=== PATIENT | female | born 1975 | race Caucasian/White ===

== ENCOUNTER → 2016-06-20 | Outpatient (CLI) | payer OTHER ==
[~2016-06-20] MED LIST: BIOTCAP2 PO; CETI10TA84 PO; CITA20TA9 PO; FLUT27.5 NAE; GLC/500 PO; IBUP600T44 PO; LEVO88TA22 PO; LEVO88TA3 PO; LORA10TA6 PO; OMEP10CA2 PO; OXYC-57 PO; PEDICHW50 PO; PRENTAB26 PO
[2016-06-20 12:39] LABS: ALT/SGPT 36 U/L (12-78); AST/SGOT 27 U/L (15-37); BLOOD UREA NITROGEN 14 mg/dl (7-18); BUN/CREATININE RATIO 16.9 (10-20); CALCIUM 9.4 mg/dl (8.5-10.1); CARBON DIOXIDE 29 mmol/L (21-32); CHLORIDE 105 mmol/L (98-107); CREATININE 0.84 mg/dl (0.60-1.20); GLUCOSE 99 mg/dl (70-99); POTASSIUM 4.2 mmol/L (3.5-5.1); SODIUM 142 mmol/L (136-145)
[2016-06-20 12:48] LABS: ALB/GLOB RATIO 1.1 (0.9-2); ALKALINE PHOSPHATASE 73 U/L (45-117); CHOLESTEROL 190 mg/dl (0-200); CHOLESTEROL/HDL RATIO 5.3; HDL CHOLESTEROL 36 mg/dl; LDL CHOLESTEROL CALCULATED 101 mg/dl; TRIGLYCERIDES 265 mg/dl (0-150); VERY LOW DENSITY LIPOPROT CALC 53 mg/dl
== END | disposition home or self-care (01) ==
LOC: C.LABBFT 08:55
PROVIDERS: ATTEND Internal Medicine
DX: Z00.00 Encounter for general adult medical examination without abnormal findings (principal); E03.9 Hypothyroidism, unspecified; E78.1 Pure hyperglyceridemia; R73.01 Impaired fasting glucose

== ENCOUNTER → 2016-07-11 | Outpatient (CLI) | payer OTHER ==
[~2016-07-11] MED LIST changes: -IBUP600T44 PO; -LEVO88TA22 PO; -LORA10TA6 PO; -OXYC-57 PO; -PRENTAB26 PO
[2016-07-11 12:24] LABS: BASO % 0.3 %; BASO ABS # 0.02 K/uL (0-0.2); COMPLETE YES; EOS % 2.6 %; HEMATOCRIT 39.1 % (37-47); IG% 0.2 %; LYMPH % 36.2 %; LYMPH ABS # 2.41 K/uL (1.2-3.4); MEAN CELL VOLUME 88.1 fL (80-100); MEAN CORPUSCULAR HEMOGLOBIN 31.5 pg (25-34); MEAN CORPUSCULAR HGB CONC 35.8 g/dl (32-36); MEAN PLATELET VOLUME 9.5 fL (7.4-10.4); MONO % 9.6 %; NEUT % 51.1 %; PLATELET COUNT 250 K/uL (130-400); RED BLOOD COUNT 4.44 M/uL (4.2-5.4); WHITE BLOOD COUNT 6.65 K/uL (4.8-10.8)
[2016-07-11 12:33] LABS: INR 0.9 (0.9-1.1); PROTHROMBIN TIME (PATIENT) 9.9 SECONDS (9.0-12.0)
[2016-07-11 12:40] LABS: POTASSIUM 4.1 mmol/L (3.5-5.1)
== END | disposition home or self-care (01) ==
LOC: C.LABBFT 10:58
PROVIDERS: ATTEND Pediatrics
DX: Z01.812 Encounter for preprocedural laboratory examination (principal); Z98.890 Other specified postprocedural states

== ENCOUNTER → 2016-07-22 | Day surgery (SDC) | payer OTHER ==
[2016-07-08 13:11] VITALS: Ht 155.6 cm; Wt 85.0 kg
[~2016-07-22] VITALS: Ht 155.6 cm; Wt 85.0 kg
[~2016-07-22] MED LIST changes: +ATROPINE SULFATE 0.1 MG/ML 5ML SYR IV PRN; +BACITRACIN/POLYMYX B OPH OINT 3.5 GM TUBE ONE; +BACITRACIN/POLYMYXIN B OINT 15 GM TUBE EXT ONE; +DEXAMETHASONE SOD INJ 4 MG/ML VIAL ONE; +EpHEDrine SULFATE INJ 50 MG/ML AMP IV PRN; +FENTANYL CITRATE INJ 50 MCG/1 ML 2 ML VIAL ONE; +FLUMAZENIL 0.1 MG/1 ML 10 ML VIAL IV PRN; +HYDROmorphone INJ 1 MG/ML SYR IV PRN; +LABETALOL HCL IV 5 MG/ML 20ML IV PRN; +LACTATED RINGER'S 1000ML 1,000 ML IV SCH; +LIDOCAINE 2% JELLY 5 ML TUBE EXT ONE; +LIDOCAINE HCL 2% 2 ML VIAL (20MG/ML) ONE; +MIDAZOLAM HCL 1 MG/ML 2ML VIAL ONE; +NALOXONE HCL 0.4 MG/1 ML VIAL/CARP IV PRN; +ONDANSETRON INJ 2 MG/ML 2 ML VIAL IV PRN; +ONDANSETRON INJ 2 MG/ML 2 ML VIAL ONE; +OXYCODONE HCL SOLN 5 MG/5 ML UDC PO PRN; +PROMETHAZINE HCL INJ 12.5 MG in SODIUM CHLORIDE 0.9% 50ML 50 ML IV PRN; +PROPOFOL IV EMULSION 10 MG/ML 20 ML VIAL IV ONE; +SUCCINYLCHOLINE CHLORIDE 20 MG/ML 10 ML VIAL IV ONE
--- NOTE | 2016-07-22 07:49 | History & Physical Bridge - [place] ---
H&P Re-Evaluation Bridge Note: I have examined the patient, reviewed the History & Physical and in the interval since the performance of the History & Physical I have noted the following changes of clinical significance: No changes noted
--- NOTE | 2016-07-22 08:33 | [facility] Operative Report ---
Operative Report Operative Date Jul 22, 2016. Pre-Operative Diagnosis Chronic Tonsillitis Post-Operative Diagnosis Same Procedure(s) Performed Bilateral Tonsillectomy Surgeon Dr. Jiménez Hand Drawer In Surgeon(s) None Estimated Blood Loss 0 mL Findings 1. 3+ R AND 2+ L CRYPTIC TONSILS WITH EXCESSIVE TONSILLITH FORMATION Specimens A. Right Tonsil B. Left Tonsil I attest to the content of the Intraoperative Record and any orders documented therein. Any exceptions are noted below.
--- NOTE | 2016-07-22 08:36 | Discharge Instructions ---
Discharge Instructions Admission Reason for Admission: Chronic Cryptitis Tonsil, Throat Pain, Eustachian Discharge Discharge Diagnosis / Problem: SAME Discharge Goals Goal(s): Improve function Activity Recommendations Activity Limitations: as noted below 1. LIGHT ACTIVITY FOR 2WEEKS 2. SOFT DIET FOR 2WEEKS 3. NO DRIVING WHILE ON OXYCODONE . Current Hospital Diet Patient's current hospital diet: Full Liquid Diet Discharge Diet Recommended Diet: Full Liquid Diet Diet Texture: Mechanical Soft (ground) Procedures Procedures Performed: Bilateral Tonsillectomy Pending Studies Studies pending at discharge: no Laboratory Results Lipid Panel Test 06/20/16 09:01 Range/Units Triglycerides Level 265 H 0-150 mg/dl Cholesterol Level 190 0-200 mg/dl HDL Cholesterol 36 mg/dl Cholesterol/HDL Ratio 5.3 LDL Cholesterol, Calculated 101 mg/dl Medical Emergencies . Who to Call and When: Medical Emergencies: If at any time you feel your situation is an emergency, please call 911 immediately. . Non-Emergent Contact Non-Emergency issues call your: Surgeon . . "Provider Documentation" section prepared by Dominic Jiménez. VTE Core Measure Inpt VTE Proph given/why not?: SCD's
[2016-07-22 09:20] VITALS: TEMP 36.6
--- NOTE | 2016-07-22 09:22 | Anesthesia Progress Nt - [facility] ---
Anesthesia Post Op Note Date & Time Jul 22, 2016 at 09:22 Vital Signs Pain Intensity: 2 Vital Signs Past 12 Hours Date Time Temp Pulse Resp B/P Pulse Ox O2 Delivery O2 Flow Rate FiO2 07/22/16 09:03 88 21 07/22/16 09:03 92 21 97 07/22/16 09:01 84 15 97 07/22/16 09:01 89 15 97 07/22/16 08:59 36.7 87 16 133/94 97 Room Air 07/22/16 08:58 133/94 07/22/16 08:53 139/95 07/22/16 08:51 95 21 100 07/22/16 08:51 87 17 100 07/22/16 08:48 147/98 07/22/16 08:46 96 13 98 07/22/16 08:46 98 13 07/22/16 08:43 145/89 07/22/16 08:41 163/95 07/22/16 08:41 36.4 96 16 163/95 100 Humidified Oxygen 8 Mask 07/22/16 06:55 36.9 66 16 125/87 96 Room Air Notes Mental Status: alert / awake / arousable, participated in evaluation Pt Amnestic to Procedure: Yes Nausea / Vomiting: adequately controlled Pain: adequately controlled Airway Patency, RR, SpO2: stable & adequate BP & HR: stable & adequate Hydration State: stable & adequate Anesthetic Complications: no major complications apparent
[2016-07-22 09:43] VITALS: BP 136/89; PULSE 74; O2SAT 98
--- NOTE | 2016-07-22 10:13 | OPERATIVE REPORT ---
DATE OF OPERATION: 07/22/2016 PREOPERATIVE AND POSTOPERATIVE DIAGNOSIS: Chronic tonsillitis. PROCEDURE: Bilateral tonsillectomy. SURGEON: Dominic Jiménez MD ANESTHESIA: General endotracheal. ESTIMATED BLOOD LOSS: Zero. FINDINGS: 1. Normal palate. 2. 3+ right and 2+ left tonsils with excessive tonsillith formation. SPECIMENS: Right and left tonsils sent separately for permanent pathological assessment. COMPLICATIONS: None. INDICATIONS FOR THE PROCEDURE: The patient is a 40-year-old female with a history of chronic tonsillitis with excessive tonsillith formation with chronic low-grade sore throat and halitosis. She has tried conservative means such as gargling and use of a water pick without any resolution of her symptomatology. She therefore presents for the above-mentioned procedure on an outpatient elective basis. DETAILS OF PROCEDURE: After informed consent had been obtained from the patient, the patient was wheeled to the operating room and placed on the operating table in the supine position. Monitors were placed. After induction of general endotracheal anesthesia, the table was turned 90 degrees and the patient's head and neck were gently extended. Antibiotic ointment was applied to the lips and a mouth gag was carefully inserted, opened, and stabilized on a roll of towels. The palate was inspected and was found to be normal. An Allis clamp was used to grasp the right tonsil and the superior pole and Bovie electrocautery was used to remove the tonsil in the capsular plane with care to preserve the underlying mucosa and musculature of the anterior and posterior tonsillar pillars. The left tonsil was then removed in a similar fashion. Intraoperative findings were of a 3+ right and 2+ left tonsils with excessive tonsillith formation and evidence of chronic inflammation. The tonsils were sent separately for permanent pathological assessment. The oral cavity and oropharynx were then irrigated and suctioned. Hemostasis was confirmed. An orogastric tube was placed and the stomach was suctioned free of air and stomach contents. The mouth gag was then released for 1 minute. This was reopened and hemostasis was confirmed. 2% lidocaine jelly was placed in the bilateral tonsillar fossae for added anesthetic affect. This marked the end of the case. The patient tolerated the procedure well. There were no apparent complications. The patient was extubated and transferred to the recovery room in stable condition. I attest to the content of the Intraoperative Record and any orders documented therein. Any exceptio ns are noted below.
== END | disposition home or self-care (01) ==
LOC: X.SURG 06:53
DX: J35.01 Chronic tonsillitis (principal); J35.8 Other chronic diseases of tonsils and adenoids; K21.9 Gastro-esophageal reflux disease without esophagitis; E03.9 Hypothyroidism, unspecified; Z98.890 Other specified postprocedural states; Z98.818 Other dental procedure status; E66.9 Obesity, unspecified; Z68.35 Body mass index [BMI] 35.0-35.9, adult; Z79.899 Other long term (current) drug therapy; Z83.3 Family history of diabetes mellitus; Z82.49 Family history of ischemic heart disease and other diseases of the circulatory system; Z80.8 Family history of malignant neoplasm of other organs or systems; Z80.3 Family history of malignant neoplasm of breast; Z80.41 Family history of malignant neoplasm of ovary

== ENCOUNTER → 2017-01-08 | Outpatient (CLI) | payer OTHER ==
[~2017-01-08] MED LIST changes: -ATROPINE SULFATE 0.1 MG/ML 5ML SYR IV PRN; -BACITRACIN/POLYMYX B OPH OINT 3.5 GM TUBE ONE; -BACITRACIN/POLYMYXIN B OINT 15 GM TUBE EXT ONE; -DEXAMETHASONE SOD INJ 4 MG/ML VIAL ONE; -EpHEDrine SULFATE INJ 50 MG/ML AMP IV PRN; -FENTANYL CITRATE INJ 50 MCG/1 ML 2 ML VIAL ONE; -FLUMAZENIL 0.1 MG/1 ML 10 ML VIAL IV PRN; -HYDROmorphone INJ 1 MG/ML SYR IV PRN; -LABETALOL HCL IV 5 MG/ML 20ML IV PRN; -LACTATED RINGER'S 1000ML 1,000 ML IV SCH; -LIDOCAINE 2% JELLY 5 ML TUBE EXT ONE; -LIDOCAINE HCL 2% 2 ML VIAL (20MG/ML) ONE; -MIDAZOLAM HCL 1 MG/ML 2ML VIAL ONE; -NALOXONE HCL 0.4 MG/1 ML VIAL/CARP IV PRN; -ONDANSETRON INJ 2 MG/ML 2 ML VIAL IV PRN; -ONDANSETRON INJ 2 MG/ML 2 ML VIAL ONE; -OXYCODONE HCL SOLN 5 MG/5 ML UDC PO PRN; -PROMETHAZINE HCL INJ 12.5 MG in SODIUM CHLORIDE 0.9% 50ML 50 ML IV PRN; -PROPOFOL IV EMULSION 10 MG/ML 20 ML VIAL IV ONE; -SUCCINYLCHOLINE CHLORIDE 20 MG/ML 10 ML VIAL IV ONE
[2017-01-08 12:24] LABS: BASO % 0.3 %; BASO ABS # 0.02 K/uL (0-0.2); COMPLETE YES; EOS % 7.6 %; IG% 0.3 %; LYMPH % 32.5 %; LYMPH ABS # 2.09 K/uL (1.2-3.4); MEAN CORPUSCULAR HEMOGLOBIN 29.9 pg (25-34); MEAN CORPUSCULAR HGB CONC 33.6 g/dl (32-36); MEAN PLATELET VOLUME 9.2 fL (7.4-10.4); MONO % 9.3 %; PLATELET COUNT 220 K/uL (130-400); RED BLOOD COUNT 4.38 M/uL (4.2-5.4); WHITE BLOOD COUNT 6.44 K/uL (4.8-10.8)
[2017-01-08 12:46] LABS: ALT/SGPT 32 U/L (12-78); AST/SGOT 26 U/L (15-37); BLOOD UREA NITROGEN 13 mg/dl (7-18); CALCIUM 9.2 mg/dl (8.5-10.1); CARBON DIOXIDE 27 mmol/L (21-32); CHLORIDE 108 mmol/L (98-107); GLUCOSE 88 mg/dl (70-99); POTASSIUM 3.8 mmol/L (3.5-5.1); SODIUM 140 mmol/L (136-145)
[2017-01-08 12:48] LABS: ALB/GLOB RATIO 1.2 (0.9-2); ALKALINE PHOSPHATASE 64 U/L (45-117)
[2017-01-08 12:52] LABS: ESTIMATED AVERAGE GLUCOSE 111 mg/dl; HA1C FLAG Normal (Normal)
[2017-01-08 12:58] LABS: CHOLESTEROL/HDL RATIO 5.5; THYROID STIMULATING HORMONE 2.09 uIu/ml (0.300-4.500)
[2017-01-12 18:50] LABS: MICROSOMAL AB 2 IU/ML (<9); T3 REVERSE **TC 90963 8 ng/dL (8-25)
== END | disposition home or self-care (01) ==
LOC: C.LAB 11:04
PROVIDERS: ATTEND Chiropractor
DX: Z00.00 Encounter for general adult medical examination without abnormal findings (principal); M79.1 Myalgia; E03.9 Hypothyroidism, unspecified; E78.1 Pure hyperglyceridemia; R73.01 Impaired fasting glucose

== ENCOUNTER → 2017-07-10 | Outpatient (CLI) | payer BC ==
[2017-07-10 13:30] LABS: HEMOGLOBIN A1C 5.2 % (4.5-5.6)
== END | disposition home or self-care (01) ==
LOC: C.LABBFT 10:51
PROVIDERS: ATTEND Internal Medicine
DX: E03.9 Hypothyroidism, unspecified (principal); E28.2 Polycystic ovarian syndrome; R73.01 Impaired fasting glucose

== ENCOUNTER → 2018-01-28 | Outpatient (CLI) | payer BC ==
[2018-01-29 06:17] LABS: HEMOGLOBIN A1C 5.5 % (4.5-5.6)
== END | disposition home or self-care (01) ==
LOC: C.LAB1850 15:56
PROVIDERS: ATTEND Internal Medicine
DX: Z00.00 Encounter for general adult medical examination without abnormal findings (principal); E03.9 Hypothyroidism, unspecified; R73.01 Impaired fasting glucose; E28.2 Polycystic ovarian syndrome